=== PATIENT | male | born 1960 | race Caucasian/White ===

== ENCOUNTER 2023-08-12 06:18 | Day surgery (SDC) | payer MEDICARE, SELFPAY ==
[2023-07-26 09:53] VITALS: BMI 29.9
[2023-08-12] VITALS (25 sets, daily range): BP systolic 142–167; BP diastolic 76–112; BMI 29.9
[2023-08-12] MEDS: TYLENOL 1000 MG PO ×2 (08:44→19:27)
[2023-08-12] MEDS: NORMOSOL-R 1000 IV (08:44)
--- NOTE | 2023-08-12 11:21 | W.IMMPOSTOP ---
Surgical Immed Post Op Note
-
Primary Surgeon: Sean
Assisting: Juhi HANCOCK
Pre-op Diagnosis: Left inguinal hernia
Post-op Diagnosis: Incarcerated left inguinal hernia
Procedure Performed: Robot assisted laparoscopic repair of incarcerated left inguinal hernia
Anesthesia Type: GETA
Specimen / Cultures: None
Estimated Blood Loss: 40cc
Complications: None immediate
Operative Findings: Massive retroperitoneal fat tracking up into the canal, maximally reduced; no sac; XL MID 3D Max
--- NOTE | 2023-08-12 11:23 | OR.RPT ---
Operative Report
Operative Report
Primary Surgeon: Sean
Assisting: Juhi HANCOCK
Pre-op Diagnosis: Left inguinal hernia
Post-op Diagnosis: Incarcerated left inguinal hernia
Procedure Performed: Robot assisted laparoscopic repair of incarcerated left inguinal hernia
Anesthesia Type: GETA
Specimen / Cultures: None
Estimated Blood Loss: 40cc
Complications: None immediate
Operative Findings: Massive retroperitoneal fat tracking up into the canal, maximally reduced; no sac; XL MID 3D Max
Date of surgery: 08/12/23
Indications:� This 63M developed symptomatic left inguinal hernia. Robot assisted laparoscopic repair was planned.
Description of procedure:� The patient was taken to the operating room and positioned into supine position. The patient�s abdomen was prepped and draped in standard sterile fashion. A time-out was completed verifying correct patient, procedure,
site, positioning, and implants and special equipment prior to beginning this procedure.� A stab incision was made in the left upper quadrant, a Veress needle was inserted and proper position was confirmed by aspiration and saline drop test.
Following this, pneumoperitoneum was created with insufflation of carbon dioxide to 12 mmHg. Then a 8mm robotic trocar was inserted above and to the left of the umbilicus. A laparoscope was inserted and the area of initial trocar entry and Veress
needle placement were both inspected and no injuries were found. Two 8mm trocars were then placed lateral to the rectus sheath under direct visualization.
Both inguinal regions were inspected and the median umbilical ligament, medial umbilical ligament, and lateral umbilical fold were identified. The right groin was inspected and no abnormality was identified. Attention was turned to the left groin.
The peritoneum was incised transversely above the defect and a flap was developed in the caudad direction. Reggie�s ligament was identified ultimately dissected to its junction with the iliac vein and the space of Retzius was developed bluntly.� The
dissection was continued inferiorly to the iliopubic tract, with care taken to avoid injury to the femoral branch of the genitofemoral nerve and the lateral femoral cutaneous nerve. The cord structures were parietalized.
The direct space was inspected and a hernia was not identified. The femoral space was inspected and a defect was not identified.� The indirect space was contained a massive amount of retroperitoneal fat that was maximally reduced out of the canal.
The cord structures were identified and protected. Bleeding from large veins within the fatty mass was identified and controlled with cautery and direct pressure.
Extra large left MID 3D max mesh was passed through a trocar. The mesh was placed into the preperitoneal space and moved into position to lay flat and completely cover the direct, indirect, and femoral spaces with overlap beyond the midline. The
mesh was secured into place using 2-0 vicryl suture to Reggie�s ligament medially and laterally. Care was taken to avoid the inferolateral triangles containing the iliac vessels and genital nerves.
The peritoneal flap was closed over the mesh and secured with 2-0 monocryl stratafix suture in similar positions of safety. A 14g angiocath was used to decompress the preperitoneal space revealing good seal and all mesh in good position without
folding or curling. After ensuring adequate hemostasis, the trocars were removed and the pneumoperitoneum allowed to escape. The trocar incisions were closed at the skin level using 4-0 monocryl and topical skin adhesive. All counts were correct and
the patient tolerated the procedure well and was taken to the postanesthesia care unit in stable condition.
[2023-08-12 11:48] LABS: Hematocrit 39.8 % (39.0-52.0); Hemoglobin 13.6 g/dL (13.0-18.0); Mean Corp Hgb Conc. 34.2 g/dL (33.0-37.0); Mean Corpuscular Hgb 31.6 pg (27.0-31.0); Mean Corpuscular Volume 92.3 fL (80.0-94.0); Red Blood Cell Count 4.31 10^6/uL (4.70-6.10); Red Cell Dist. Width 14.2 % (11.5-14.5); White Blood Cell Count 3.7 10^3/uL (4.8-10.8)
[2023-08-12 12:20] LABS: Mean Platelet Volume 9.3 fL (7.4-10.4); Platelet Count 47 10^3/uL (130-400)
--- NOTE | 2023-08-12 14:05 | W.PN.UPDATE ---
Update Note
Progress Note Update
Pt seen and evaluated in PACU. AFVSS.
Minor ecchymosis/hematoma at his port sites. He has a hx of thrombocytopenia however his most recent plt level was WNL. CBC sent from PACU notable for 47K plts.
Plan to admit for obs and transfuse one pack plts
Recheck CBC in am. I do not suspect ongoing significant bleeding at this time, but will obs and transfuse out of an abundance of caution.
SCDs only for DVT ppx
D/w pt and , all ?s answered, all in agreement.
--- NOTE | 2023-08-12 14:36 | PTCARENOTE ---
1230 patient asked nursing to call and update. done. resting comfortably. Await orders from Dr Estrada - type and cross sent
1340 - Dr Estrada spoke with patient, platelet count discussed and plan of care discussed. Consent for platelets reviewed and signed. orders placed, taking sips of clear liquids now.
1615- platelets received and protocol followed and hung. Nasal O2 resumed for sats 89% on room air when sleeping. refuses pain meds. No change in abd or hematomas .
[2023-08-12] MEDS: TRANEXAMIC ACID 100 IV (14:50)
--- NOTE | 2023-08-12 15:01 | SUR.PHASEI ---
platelets infused, tolerated well. no c/o. sleeps at intervals. await 2 south bed.
--- NOTE | 2023-08-12 15:40 | PTCARENOTE ---
Pt received from the PACU via stretcher. Transport was w/o incident. Pt is AAOx3, HRR, lungs are clear, resp. easy. VSS, Pt is afebrile. Pt's Abd w/ 5 Lap sites. 2 Lap sites middle of abd w/ blood soaked bandaids noted, other Lap sites with sm blood
spots. Middle Lap with noted Hematoma black and blue. Soaked bandaids changed to better assess if bleeding continues. Per PACU nurses Dr Estrada aware and has reassessed Pt. In PACU Pt received TXA and platelets. Pt reports pain as mild at this time.
Pt instructed on plan of care. Pt verbalized understanding of instructions. Call weaver within reach.
[2023-08-13] MEDS: TYLENOL PO ×2 (01:03→06:17)
[2023-08-13 03:13] VITALS: BP 135/80
[2023-08-13 05:50] LABS: Hematocrit 36.2 % (39.0-52.0); Hemoglobin 12.4 g/dL (13.0-18.0); Mean Corp Hgb Conc. 34.3 g/dL (33.0-37.0); Mean Corpuscular Hgb 30.9 pg (27.0-31.0); Mean Corpuscular Volume 90.3 fL (80.0-94.0); Mean Platelet Volume 9.9 fL (7.4-10.4); Platelet Count 53 10^3/uL (130-400); Red Blood Cell Count 4.01 10^6/uL (4.70-6.10); Red Cell Dist. Width 13.7 % (11.5-14.5)
[2023-08-13 07:15] VITALS: BP 136/84
--- NOTE | 2023-08-13 08:22 | W.PN.GS2 ---
Today's Communication / Plan
-
dispo planning
Assessment / Plan
-
63 yo male POD #1 RAL repair of incarcerated left hernia
Developed hematomas at port site, s/p transfusion of platelets for thrombocytopenia
Incisions table
AFVSS
Labs stable post op. Mild acute blood loss anemia (12.4 from 13.6), mild thrombocytopenia (up from yesterday).
Tolerating diet
--Continue diet
--Analgesics prn
--Ice packs to incision sites x20min intervals
--Dispo planning
Subjective Data
-
Date of Service: August 13, 2023
Patient seen and examined at bedside with Dr. Philip. [place] n/v. Tolerating diet. Minimal post op discomfort. Voiding without difficultly.
Objective Data
-
Intake and Output
08/12/23 08/13/23 08/14/23
06:59 06:59 06:59
Intake Total 1511 / 1511
Output Total 530 / 530
Balance 981 / 981
Intake:
Oral fluids 890 / 890
IV fluids (Total) 250 / 250
TXA 100 / 100
normosol 100 / 100
nss 50 / 50
Blood Products 371 / 371
Platelets 371 / 371
Output:
Urine, Voided 530 / 530
Vital Signs
Temp Pulse Resp BP Pulse Ox
98.3 F 80 18 136/84 94
08/13/23 07:15 08/13/23 07:15 08/13/23 07:15 08/13/23 07:15 08/13/23 07:15
Lab Results
08/13/23 05:03
Physical Exam
-
NAD
ABD soft, ND, Mild incisional tenderness
Small hematoma to LUQ and midline port sites with surrounding ecchymosis. Groin without much edema, no ecchymosis.
--- NOTE | 2023-08-13 08:56 | PTCARENOTE ---
Patient discharged to home via wheelchair with with all belongings. Discharge instructions discussed.
--- NOTE | 2023-08-13 09:01 | CM ---
Chart reviewed patient is for discharge to home today, dressed ready for pick, per patient he lives with his spouse in a multilevel home, patient is independent with adl's and ambulation, no dme. [facility] pharmacy.
Plan; Home no needs
== END 2023-08-13 08:57 | disposition home or self-care (01) ==
LOC: SDS 06:18
PROVIDERS: ATTENDING PHYSICIAN Surgery
DX: K40.30 Unilateral inguinal hernia, with obstruction, without gangrene, not specified as recurrent (principal)
CPT/HCPCS: 49650; 85027; 86850; 86900; 86901; C1781; P9073

== ENCOUNTER → 2024-01-03 06:49 | Outpatient (REF) | payer MEDICARE, SELFPAY ==
[2024-01-03 07:27] VITALS: BP 137/88; BP_SYST 65
[2024-01-03 07:31] LABS: INR 1.21; PT 15.1 Sec (11.4-14.6)
[2024-01-03 07:38] LABS: % Basophils 0.7 % (0-2); % Eosinophils 3.3 % (0-6); % Immature Granulocytes 0.4 % (0-0.5); % Monocytes 13.2 % (1.7-9.3); % Neutrophils 64.4 % (42.2-75.2); Absolute Eosinophils 0.1 10^3/uL (0-0.7); Absolute Lymphocytes 0.5 10^3/uL (1.2-3.4); Absolute Monocytes 0.4 10^3/uL (0.1-0.6); Absolute Neutrophils 1.8 10^3/uL (1.4-6.5); Hematocrit 39.9 % (39.0-52.0); Mean Corp Hgb Conc. 35.1 g/dL (33.0-37.0); Mean Corpuscular Hgb 32.4 pg (27.0-31.0); Mean Corpuscular Volume 92.4 fL (80.0-94.0); Mean Platelet Volume 9.1 fL (7.4-10.4); Nucleated Red Blood Cells % 0 % (-); Platelet Count 63 10^3/uL (130-400); Red Blood Cell Count 4.32 10^6/uL (4.70-6.10); Red Cell Dist. Width 13.1 % (11.5-14.5); White Blood Cell Count 2.7 10^3/uL (4.8-10.8)
[2024-01-03] MEDS: NSS (PRESERVATIVE FREE) 0.25 ML IV (08:15)
[2024-01-03] MEDS: ATIVAN 0.5 MG IV (08:15)
[2024-01-03 09:18] VITALS: BP 150/85
== END ==
LOC: RADI 06:49
PROVIDERS: ATTENDING PHYSICIAN Internal Medicine Hematology & Oncology; FAMILY PHYSICIAN Family Medicine
DX: D69.6 Thrombocytopenia, unspecified (principal)
CPT/HCPCS: 88305; 88311; 88312; 36415; 38222; 77012; 85025; 85610; 88313